=== PATIENT | female | born 1985 | race Hispanic/Latino ===

== ENCOUNTER 2023-11-04 02:00 | Inpatient (IN) ==
[2023-11-04] MEDS: ACETAMINOPHEN 325 MG TABLET PO ONE (02:31)
[2023-11-04 03:34] LABS: ALT/SGPT 67 U/L (<40); AST/SGOT 30 U/L (<32); Albumin 2.7 gm/dL (3.2-5.2); Albumin/Globulin Ratio 0.8 (1.0-2.3); Alkaline Phosphatase 334 U/L (39-117); Bilirubin,Total 0.4 mg/dL (0.1-1.0); Blood Urea Nitrogen 5 mg/dL (6-20); Calcium 8.5 mg/dL (8.6-10.4); Carbon Dioxide 19 mmol/L (22-30); Chloride 98 mmol/L (96-108); Globulin 3.4 gm/dL (2.2-3.7); Glomerular Filtration Rate 114; Glucose 103 mg/dL (70-105)
[2023-11-04] MEDS: 0.9 % SODIUM CHLORIDE 1,000 ML IV ONE ×2 (04:35→06:07)
[2023-11-04] MEDS: IPRATROPIUM/ALBUTEROL 3 ML AMPUL.NEB NEB ONE ×2 (05:24→06:13)
[2023-11-04] MEDS: DEXAMETHASONE 4 MG/ML VIAL NEB ONE (05:33)
[2023-11-04] MEDS: DEXAMETHASONE 10 MG/ML VIAL IM ONE (05:33)
[2023-11-04 05:46] LABS: Basophils # (Auto) 0.02 K/mcL (0.00-0.30); Basophils % (Auto) 0.1 % (0.0-2.0); Eosinophils % (Auto) 1.3 % (0.0-7.0); Hematocrit 34.5 % (34.1-44.9); Hemoglobin 10.9 g/dL (11.2-15.7); Lymphocytes # (Auto) 0.95 K/mcL (1.50-4.80); Lymphocytes % (Auto) 6.1 % (15.5-49.0); Mean Cell Volume 79.1 fL (80.0-100.0); Mean Corpuscular HGB Conc 31.6 g/dL (31.0-36.0); Monocytes # (Auto) 0.48 K/mcL (0.10-0.90); Monocytes % (Auto) 3.1 % (1.0-12.0); Neutrophils % (Auto) 88.7 % (38.0-78.0); Platelet Count 530 K/mcL (140-440); RBC 4.36 M/mcL (3.59-5.38); Red Cell Distribution Width 18.2 % (11.5-14.5); WBC 15.5 K/mcL (4.5-11.0)
[2023-11-04] MEDS: cefTRIAXone 1 GM VIAL IV ONE (08:33)
[2023-11-04] MEDS ORDERED: POTASSIUM CHLORIDE 40 MEQ in DEXTROSE 5% IN WATER 500 ML IV PRN (09:25)
[2023-11-04] MEDS ORDERED: POTASSIUM CHLORIDE 20 MEQ TABLET PO PRN (09:25)
[2023-11-04] MEDS ORDERED: SENNOSIDES 1 TABLET PO PRN (09:25)
[2023-11-04] MEDS ORDERED: POLYETHYLENE GLYCOL 3350 17 GM PACKET PO PRN (09:25)
[2023-11-04] MEDS ORDERED: VANCOMYCIN PER PHARMACY IV SCH (09:30)
[2023-11-04 10:11] LABS: Anisocytosis 2+ (None Seen); Band Neutrophils % 5 % (0-10); Eosinophils % (Manual) 3 % (0-7); Lymphocytes % 3 % (15-49); Microcytosis FEW (None Seen); Monocytes % (Manual) 3 % (1-12); Platelet Estimate INCREASED (Normal); RBC Morphology ABNORMAL (Normal); Reactive Lymphocytes 1 % (0-2); Segmented Neutrophils % 85 % (38-78)
[2023-11-04] MEDS: PIPERACILLIN SODIUM/TAZOBACTAM 3.375 GM in DEXTROSE 5% IN WATER 50 ML IV ONE (10:13)
[2023-11-04] MEDS: ENOXAPARIN 40 MG/0.4 ML SYRINGE SQ SCH (10:14)
[2023-11-04] MEDS: VANCOMYCIN 1,500 MG in 0.9 % SODIUM CHLORIDE 500 ML IV SCH (10:45)
[2023-11-04] MEDS: CEFEPIME 2 GM VIAL IV SCH (11:11)
[2023-11-04] MEDS: ACETAMINOPHEN 325 MG TABLET PO PRN (11:12)
[2023-11-04] MEDS: POTASSIUM CHLORIDE 20 MEQ TABLET PO PRN (11:12)
[2023-11-04] MEDS: MAGNESIUM SULFATE 2 GM/50 ML BAG IV PRN (11:12)
[2023-11-04 11:43] LABS: Appearance,Urine Clear (Clear); Bacteria,Urine 0 /hpf (0); Bilirubin,Urine Negative (Negative); Color,Urine Yellow; Culture Indicated,Urine No; Glucose,Urine (UA) Negative (Negative); Ketones,Urine Negative (Negative); Leukocyte Esterase,Urine Large /uL (Negative); Nitrate,Urine Negative (Negative); Protein,Urine Negative (Negative); Specific Gravity,Urine 1.015 (1.000-1.035); Urine Blood Large ery/mcL (Negative); Urine RBC 9 /hpf (0-3); Urine Squamous Epithelial Cell 20 /hpf (0-4); Urine WBC 10 /hpf (0-4); Urobilinogen,Urine 0.2 mg/dL
[2023-11-04] MEDS: 0.9 % SODIUM CHLORIDE 10 ML SYRINGE IV SCH (12:15)
[2023-11-04] MEDS ORDERED: PIPERACILLIN SODIUM/TAZOBACTAM 3.375 GM in DEXTROSE 5% IN WATER 100 ML IV SCH (14:00)
[2023-11-04] MEDS: DOCUSATE SODIUM 100 MG CAPSULE PO SCH (21:42)
[2023-11-04] MEDS: KETOROLAC 30 MG/ML VIAL IV PRN (23:59)
[2023-11-05] MEDS: KETOROLAC 15 MG/ML VIAL ONE (00:59)
[2023-11-05] MEDS: IPRATROPIUM/ALBUTEROL 3 ML AMPUL.NEB NEB PRN (01:56)
[2023-11-05 06:57] LABS: ALT/SGPT 48 U/L (<40); AST/SGOT 20 U/L (<32); Albumin 2.7 gm/dL (3.2-5.2); Albumin/Globulin Ratio 0.8 (1.0-2.3); Alkaline Phosphatase 294 U/L (39-117); Bilirubin,Direct < 0.2 mg/dL (0-0.3); Bilirubin,Total 0.4 mg/dL (0.1-1.0); Blood Urea Nitrogen 7 mg/dL (6-20); Calcium 8.7 mg/dL (8.6-10.4); Carbon Dioxide 21 mmol/L (22-30); Chloride 107 mmol/L (96-108); Globulin 3.3 gm/dL (2.2-3.7); Glomerular Filtration Rate 121; Glucose 104 mg/dL (70-105); Lactate Dehydrogenase 177 U/L (135-225); Phosphorous 4.3 mg/dL (2.5-4.5); Triglycerides 109 mg/dL (<150); Uric Acid 2.1 mg/dL (2.5-8.0)
[2023-11-05 07:07] LABS: Basophils # (Auto) 0.02 K/mcL (0.00-0.30); Basophils % (Auto) 0.1 % (0.0-2.0); Eosinophils # (Auto) 0.42 K/mcL (0.00-0.70); Eosinophils % (Auto) 2.3 % (0.0-7.0); Hematocrit 30.4 % (34.1-44.9); Hemoglobin 9.8 g/dL (11.2-15.7); Lymphocytes # (Auto) 0.88 K/mcL (1.50-4.80); Lymphocytes % (Auto) 4.9 % (15.5-49.0); Mean Cell Volume 78.4 fL (80.0-100.0); Mean Corpuscular HGB Conc 32.2 g/dL (31.0-36.0); Mean Platelet Volume 9.2 fL (8.8-12.5); Monocytes # (Auto) 0.32 K/mcL (0.10-0.90); Monocytes % (Auto) 1.8 % (1.0-12.0); Neutrophils % (Auto) 89.6 % (38.0-78.0); Platelet Count 507 K/mcL (140-440); RBC 3.88 M/mcL (3.59-5.38)
[2023-11-05] MEDS: POTASSIUM CHLORIDE 20 MEQ TABLET PO SCH (09:53)
[2023-11-06 06:18] LABS: Basophils # (Auto) 0.02 K/mcL (0.00-0.30); Basophils % (Auto) 0.1 % (0.0-2.0); Eosinophils % (Auto) 4.7 % (0.0-7.0); Hematocrit 29.6 % (34.1-44.9); Hemoglobin 9.4 g/dL (11.2-15.7); Lymphocytes # (Auto) 0.88 K/mcL (1.50-4.80); Lymphocytes % (Auto) 5.2 % (15.5-49.0); Mean Cell Volume 79.4 fL (80.0-100.0); Mean Corpuscular HGB Conc 31.8 g/dL (31.0-36.0); Mean Platelet Volume 9.4 fL (8.8-12.5); Monocytes # (Auto) 0.29 K/mcL (0.10-0.90); Monocytes % (Auto) 1.7 % (1.0-12.0); Neutrophils % (Auto) 86.3 % (38.0-78.0); Platelet Count 492 K/mcL (140-440); RBC 3.73 M/mcL (3.59-5.38); Red Cell Distribution Width 18.3 % (11.5-14.5); WBC 16.9 K/mcL (4.5-11.0)
[2023-11-06 06:37] LABS: ALT/SGPT 34 U/L (<40); AST/SGOT 18 U/L (<32); Albumin 2.5 gm/dL (3.2-5.2); Albumin/Globulin Ratio 0.8 (1.0-2.3); Alkaline Phosphatase 266 U/L (39-117); Bilirubin,Direct < 0.2 mg/dL (0-0.3); Bilirubin,Total 0.3 mg/dL (0.1-1.0); Blood Urea Nitrogen 9 mg/dL (6-20); Calcium 8.3 mg/dL (8.6-10.4); Carbon Dioxide 20 mmol/L (22-30); Chloride 106 mmol/L (96-108); Globulin 3.3 gm/dL (2.2-3.7); Glomerular Filtration Rate 114; Glucose 97 mg/dL (70-105); Lactate Dehydrogenase 177 U/L (135-225); Phosphorous 3.5 mg/dL (2.5-4.5); Triglycerides 138 mg/dL (<150); Uric Acid 2.3 mg/dL (2.5-8.0)
[2023-11-06] MEDS: HYDROcodone/APAP 5/325MG TABLET PO PRN (10:32)
[2023-11-06] MEDS: POTASSIUM CHLORIDE 20 MEQ TABLET PO SCH (10:33)
[2023-11-06 11:09] LABS: Ferritin 163.3 ng/mL (13.0-150.0)
[2023-11-06] MEDS: KETOROLAC 30 MG/ML VIAL IV PRN (12:10)
[2023-11-07 07:08] LABS: Basophils # (Auto) 0.02 K/mcL (0.00-0.30); Basophils % (Auto) 0.1 % (0.0-2.0); Eosinophils # (Auto) 0.69 K/mcL (0.00-0.70); Eosinophils % (Auto) 3.5 % (0.0-7.0); Hematocrit 29.7 % (34.1-44.9); Hemoglobin 9.6 g/dL (11.2-15.7); Lymphocytes # (Auto) 1.12 K/mcL (1.50-4.80); Lymphocytes % (Auto) 5.7 % (15.5-49.0); Mean Corpuscular HGB Conc 32.3 g/dL (31.0-36.0); Mean Platelet Volume 9.1 fL (8.8-12.5); Monocytes # (Auto) 0.36 K/mcL (0.10-0.90); Monocytes % (Auto) 1.8 % (1.0-12.0); Neutrophils % (Auto) 85.4 % (38.0-78.0); Platelet Count 501 K/mcL (140-440); RBC 3.76 M/mcL (3.59-5.38); Red Cell Distribution Width 18.3 % (11.5-14.5); WBC 19.7 K/mcL (4.5-11.0)
[2023-11-07 07:29] LABS: ALT/SGPT 35 U/L (<40); AST/SGOT 21 U/L (<32); Albumin 2.6 gm/dL (3.2-5.2); Albumin/Globulin Ratio 0.8 (1.0-2.3); Alkaline Phosphatase 257 U/L (39-117); Bilirubin,Direct < 0.2 mg/dL (0-0.3); Bilirubin,Total 0.2 mg/dL (0.1-1.0); Blood Urea Nitrogen 8 mg/dL (6-20); Calcium 8.2 mg/dL (8.6-10.4); Carbon Dioxide 19 mmol/L (22-30); Chloride 103 mmol/L (96-108); Globulin 3.3 gm/dL (2.2-3.7); Glomerular Filtration Rate 121; Glucose 102 mg/dL (70-105); Lactate Dehydrogenase 205 U/L (135-225); Phosphorous 4.2 mg/dL (2.5-4.5); Thyroid Stimulating Hormone 2.72 uIU/mL (0.27-5.01); Triglycerides 141 mg/dL (<150); Uric Acid 2.1 mg/dL (2.5-8.0)
[2023-11-07] MEDS ORDERED: VANCOMYCIN PER PHARMACY IV SCH (08:06)
[2023-11-07] MEDS: LACTATED RINGERS 1,000 ML IV ONE (09:04)
[2023-11-07] MEDS: VANCOMYCIN 1,500 MG in 0.9 % SODIUM CHLORIDE 500 ML IV ONE (09:04)
[2023-11-07] MEDS: LEVOFLOXACIN 750 MG/150 ML BAG IV SCH (09:11)
[2023-11-07] MEDS: LACTATED RINGERS 1,000 ML IV SCH (15:27)
[2023-11-07] MEDS: VANCOMYCIN 1,250 MG in 0.9 % SODIUM CHLORIDE 500 ML IV SCH (20:20)
[2023-11-08] MEDS: ONDANSETRON 4 MG/2 ML VIAL IV PRN (03:48)
[2023-11-08 05:32] LABS: Basophils # (Auto) 0.02 K/mcL (0.00-0.30); Basophils % (Auto) 0.1 % (0.0-2.0); Eosinophils # (Auto) 0.54 K/mcL (0.00-0.70); Eosinophils % (Auto) 2.4 % (0.0-7.0); Hematocrit 29.3 % (34.1-44.9); Hemoglobin 9.3 g/dL (11.2-15.7); Lymphocytes # (Auto) 1.07 K/mcL (1.50-4.80); Lymphocytes % (Auto) 4.8 % (15.5-49.0); Mean Cell Volume 80.3 fL (80.0-100.0); Mean Corpuscular HGB Conc 31.7 g/dL (31.0-36.0); Mean Platelet Volume 9.5 fL (8.8-12.5); Monocytes # (Auto) 0.41 K/mcL (0.10-0.90); Monocytes % (Auto) 1.8 % (1.0-12.0); Neutrophils % (Auto) 87.4 % (38.0-78.0); Platelet Count 486 K/mcL (140-440); RBC 3.65 M/mcL (3.59-5.38); Red Cell Distribution Width 18.3 % (11.5-14.5); WBC 22.3 K/mcL (4.5-11.0)
[2023-11-08 06:24] LABS: ALT/SGPT 29 U/L (<40); AST/SGOT 25 U/L (<32); Albumin 2.5 gm/dL (3.2-5.2); Albumin/Globulin Ratio 0.8 (1.0-2.3); Alkaline Phosphatase 247 U/L (39-117); Bilirubin,Direct < 0.2 mg/dL (0-0.3); Bilirubin,Total 0.2 mg/dL (0.1-1.0); Blood Urea Nitrogen 7 mg/dL (6-20); Calcium 8.2 mg/dL (8.6-10.4); Carbon Dioxide 22 mmol/L (22-30); Chloride 104 mmol/L (96-108); Globulin 3.2 gm/dL (2.2-3.7); Glomerular Filtration Rate 131; Glucose 104 mg/dL (70-105); Lactate Dehydrogenase 140 U/L (135-225); Phosphorous 3.4 mg/dL (2.5-4.5); Triglycerides 146 mg/dL (<150); Uric Acid 1.6 mg/dL (2.5-8.0)
[2023-11-08] MEDS: FUROSEMIDE 40 MG/4 ML VIAL IV ONE ×2 (10:16→17:15)
[2023-11-08] MEDS ORDERED: FUROSEMIDE 40 MG/4 ML VIAL IV SCH (16:00)
[2023-11-08] MEDS ORDERED: IOPAMIDOL 100 ML BOTTLE IV ONE (16:02)
[2023-11-08] MEDS: metroNIDAZOLE 500 MG/100 ML BAG IV SCH (17:57)
[2023-11-08 21:18] LABS: Appearance,Urine Clear (Clear); Bacteria,Urine 0 /hpf (0); Bilirubin,Urine Negative (Negative); Color,Urine Yellow; Culture Indicated,Urine No; Glucose,Urine (UA) Negative (Negative); Ketones,Urine Negative (Negative); Leukocyte Esterase,Urine Trace /uL (Negative); Nitrate,Urine Negative (Negative); PH,Urine 6.5 (5.0-9.0); Protein,Urine Negative (Negative); Urine Blood Moderate ery/mcL (Negative); Urine RBC 6 /hpf (0-3); Urine Squamous Epithelial Cell 4 /hpf (0-4); Urine WBC 7 /hpf (0-4); Urobilinogen,Urine Normal
[2023-11-09 05:53] LABS: Basophils # (Auto) 0.03 K/mcL (0.00-0.30); Basophils % (Auto) 0.2 % (0.0-2.0); Eosinophils # (Auto) 0.73 K/mcL (0.00-0.70); Eosinophils % (Auto) 3.8 % (0.0-7.0); Hematocrit 30.5 % (34.1-44.9); Hemoglobin 9.3 g/dL (11.2-15.7); Lymphocytes # (Auto) 1.18 K/mcL (1.50-4.80); Lymphocytes % (Auto) 6.1 % (15.5-49.0); Mean Corpuscular HGB Conc 30.5 g/dL (31.0-36.0); Mean Platelet Volume 9.7 fL (8.8-12.5); Monocytes # (Auto) 0.48 K/mcL (0.10-0.90); Monocytes % (Auto) 2.5 % (1.0-12.0); Neutrophils % (Auto) 83.4 % (38.0-78.0); Platelet Count 482 K/mcL (140-440); RBC 3.72 M/mcL (3.59-5.38); Red Cell Distribution Width 18.3 % (11.5-14.5); WBC 19.2 K/mcL (4.5-11.0)
[2023-11-09 06:11] LABS: ALT/SGPT 29 U/L (<40); AST/SGOT 39 U/L (<32); Albumin 2.5 gm/dL (3.2-5.2); Albumin/Globulin Ratio 0.7 (1.0-2.3); Alkaline Phosphatase 240 U/L (39-117); Bilirubin,Direct < 0.2 mg/dL (0-0.3); Bilirubin,Total 0.3 mg/dL (0.1-1.0); Blood Urea Nitrogen 6 mg/dL (6-20); Calcium 8.2 mg/dL (8.6-10.4); Carbon Dioxide 24 mmol/L (22-30); Chloride 103 mmol/L (96-108); Globulin 3.6 gm/dL (2.2-3.7); Glomerular Filtration Rate 144; Glucose 97 mg/dL (70-105); Lactate Dehydrogenase 163 U/L (135-225); Phosphorous 3.6 mg/dL (2.5-4.5); Triglycerides 165 mg/dL (<150); Uric Acid 2.1 mg/dL (2.5-8.0)
[2023-11-09] MEDS: SODIUM CHLORIDE 3 % 15 ML VIAL.NEB INH ONE (11:10)
[2023-11-09] MEDS ORDERED: LIDOCAINE 1% 20 ML VIAL SQ ONE (12:51)
[2023-11-09] MEDS ORDERED: SODIUM CHLORIDE IRRIG SOLUTION 500 ML BOTTLE IRR ONE (12:51)
[2023-11-09] MEDS ORDERED: VANCOMYCIN 1,500 MG in 0.9 % SODIUM CHLORIDE 500 ML IV SCH (14:00)
[2023-11-09] MEDS: VANCOMYCIN 1,750 MG in 0.9 % SODIUM CHLORIDE 500 ML IV ONE (14:41)
[2023-11-09] MEDS ORDERED: GADOBENATE DIMEGLUMINE 20 ML/VIAL IV ONE (15:00)
[2023-11-09] MEDS: VANCOMYCIN 1,500 MG in 0.9 % SODIUM CHLORIDE 500 ML IV SCH (23:04)
[2023-11-10 05:47] LABS: Basophils # (Auto) 0.04 K/mcL (0.00-0.30); Basophils % (Auto) 0.3 % (0.0-2.0); Eosinophils # (Auto) 0.67 K/mcL (0.00-0.70); Eosinophils % (Auto) 4.2 % (0.0-7.0); Hematocrit 30.8 % (34.1-44.9); Hemoglobin 9.6 g/dL (11.2-15.7); Lymphocytes # (Auto) 1.14 K/mcL (1.50-4.80); Lymphocytes % (Auto) 7.2 % (15.5-49.0); Mean Cell Volume 81.7 fL (80.0-100.0); Mean Corpuscular HGB Conc 31.2 g/dL (31.0-36.0); Mean Platelet Volume 9.4 fL (8.8-12.5); Monocytes # (Auto) 0.56 K/mcL (0.10-0.90); Monocytes % (Auto) 3.5 % (1.0-12.0); Neutrophils % (Auto) 80.3 % (38.0-78.0); Platelet Count 478 K/mcL (140-440); RBC 3.77 M/mcL (3.59-5.38); Red Cell Distribution Width 18.1 % (11.5-14.5); WBC 15.9 K/mcL (4.5-11.0)
[2023-11-10] MEDS: SODIUM CHLORIDE 3 % 15 ML VIAL.NEB INH SCH (06:21)
[2023-11-10 06:29] LABS: ALT/SGPT 48 U/L (<40); AST/SGOT 54 U/L (<32); Albumin 2.8 gm/dL (3.2-5.2); Albumin/Globulin Ratio 0.8 (1.0-2.3); Alkaline Phosphatase 291 U/L (39-117); Bilirubin,Direct < 0.2 mg/dL (0-0.3); Bilirubin,Total 0.2 mg/dL (0.1-1.0); Blood Urea Nitrogen 5 mg/dL (6-20); Calcium 8.7 mg/dL (8.6-10.4); Carbon Dioxide 25 mmol/L (22-30); Chloride 103 mmol/L (96-108); Globulin 3.4 gm/dL (2.2-3.7); Glomerular Filtration Rate 131; Glucose 101 mg/dL (70-105); Lactate Dehydrogenase 162 U/L (135-225); Phosphorous 3.7 mg/dL (2.5-4.5); Triglycerides 162 mg/dL (<150); Uric Acid 2.1 mg/dL (2.5-8.0)
[2023-11-10] MEDS: VANCOMYCIN 1,250 MG in 0.9 % SODIUM CHLORIDE 500 ML IV SCH (21:44)
[2023-11-11 06:19] LABS: Basophils # (Auto) 0.03 K/mcL (0.00-0.30); Basophils % (Auto) 0.2 % (0.0-2.0); Eosinophils # (Auto) 0.68 K/mcL (0.00-0.70); Eosinophils % (Auto) 4.1 % (0.0-7.0); Hematocrit 31.7 % (34.1-44.9); Hemoglobin 9.7 g/dL (11.2-15.7); Lymphocytes % (Auto) 7.8 % (15.5-49.0); Mean Cell Volume 82.3 fL (80.0-100.0); Mean Corpuscular HGB Conc 30.6 g/dL (31.0-36.0); Mean Platelet Volume 9.2 fL (8.8-12.5); Monocytes # (Auto) 0.55 K/mcL (0.10-0.90); Monocytes % (Auto) 3.3 % (1.0-12.0); Neutrophils % (Auto) 80.1 % (38.0-78.0); Platelet Count 509 K/mcL (140-440); RBC 3.85 M/mcL (3.59-5.38); Red Cell Distribution Width 18.6 % (11.5-14.5); WBC 16.8 K/mcL (4.5-11.0)
[2023-11-11 06:35] LABS: ALT/SGPT 42 U/L (<40); AST/SGOT 37 U/L (<32); Albumin 2.8 gm/dL (3.2-5.2); Albumin/Globulin Ratio 0.8 (1.0-2.3); Alkaline Phosphatase 226 U/L (39-117); Bilirubin,Direct < 0.2 mg/dL (0-0.3); Bilirubin,Total 0.2 mg/dL (0.1-1.0); Blood Urea Nitrogen 5 mg/dL (6-20); Calcium 8.5 mg/dL (8.6-10.4); Carbon Dioxide 23 mmol/L (22-30); Chloride 103 mmol/L (96-108); Globulin 3.4 gm/dL (2.2-3.7); Glomerular Filtration Rate 131; Glucose 100 mg/dL (70-105); Lactate Dehydrogenase 158 U/L (135-225); Triglycerides 169 mg/dL (<150); Uric Acid 2.2 mg/dL (2.5-8.0)
[2023-11-12 06:46] LABS: Basophils # (Auto) 0.06 K/mcL (0.00-0.30); Basophils % (Auto) 0.3 % (0.0-2.0); Eosinophils # (Auto) 0.71 K/mcL (0.00-0.70); Eosinophils % (Auto) 3.8 % (0.0-7.0); Hematocrit 31.2 % (34.1-44.9); Hemoglobin 9.8 g/dL (11.2-15.7); Lymphocytes # (Auto) 1.33 K/mcL (1.50-4.80); Lymphocytes % (Auto) 7.2 % (15.5-49.0); Mean Corpuscular HGB Conc 31.4 g/dL (31.0-36.0); Mean Platelet Volume 9.1 fL (8.8-12.5); Monocytes # (Auto) 0.67 K/mcL (0.10-0.90); Monocytes % (Auto) 3.6 % (1.0-12.0); Neutrophils % (Auto) 81.6 % (38.0-78.0); Platelet Count 531 K/mcL (140-440); RBC 3.85 M/mcL (3.59-5.38); Red Cell Distribution Width 18.6 % (11.5-14.5); WBC 18.6 K/mcL (4.5-11.0)
[2023-11-12 07:02] LABS: ALT/SGPT 37 U/L (<40); AST/SGOT 29 U/L (<32); Albumin/Globulin Ratio 0.9 (1.0-2.3); Alkaline Phosphatase 223 U/L (39-117); Bilirubin,Direct < 0.2 mg/dL (0-0.3); Bilirubin,Total 0.2 mg/dL (0.1-1.0); Blood Urea Nitrogen 6 mg/dL (6-20); C-Reactive Protein 8.46 mg/dL (0.03-0.80); Calcium 8.8 mg/dL (8.6-10.4); Carbon Dioxide 24 mmol/L (22-30); Chloride 100 mmol/L (96-108); Globulin 3.4 gm/dL (2.2-3.7); Glomerular Filtration Rate 131; Glucose 104 mg/dL (70-105); Lactate Dehydrogenase 148 U/L (135-225); Phosphorous 3.9 mg/dL (2.5-4.5); Triglycerides 178 mg/dL (<150); Uric Acid 2.5 mg/dL (2.5-8.0)
[2023-11-12 17:08] LABS: Mitogen - NIL 3.85 IU/mL; NIL 0.02 IU/mL; Quant TB Gold + 4T Incubated Negative (Negative); TB1-NIL 0.03 IU/mL; TB2-NIL 0.05 IU/mL
[2023-11-13 06:53] LABS: ALT/SGPT 32 U/L (<40); AST/SGOT 33 U/L (<32); Albumin 3.2 gm/dL (3.2-5.2); Albumin/Globulin Ratio 0.9 (1.0-2.3); Alkaline Phosphatase 218 U/L (39-117); Bilirubin,Direct < 0.2 mg/dL (0-0.3); Bilirubin,Total < 0.2 mg/dL (0.1-1.0); Blood Urea Nitrogen 7 mg/dL (6-20); Carbon Dioxide 24 mmol/L (22-30); Chloride 104 mmol/L (96-108); Globulin 3.4 gm/dL (2.2-3.7); Glomerular Filtration Rate 131; Glucose 93 mg/dL (70-105); Lactate Dehydrogenase 200 U/L (135-225); Triglycerides 186 mg/dL (<150); Uric Acid 2.7 mg/dL (2.5-8.0)
[2023-11-13 08:41] LABS: Basophils # (Auto) 0.07 K/mcL (0.00-0.30); Basophils % (Auto) 0.4 % (0.0-2.0); Eosinophils # (Auto) 0.73 K/mcL (0.00-0.70); Eosinophils % (Auto) 4.5 % (0.0-7.0); Hematocrit 32.8 % (34.1-44.9); Hemoglobin 10.2 g/dL (11.2-15.7); Lymphocytes # (Auto) 1.44 K/mcL (1.50-4.80); Lymphocytes % (Auto) 8.9 % (15.5-49.0); Mean Corpuscular HGB Conc 31.1 g/dL (31.0-36.0); Mean Platelet Volume 9.2 fL (8.8-12.5); Monocytes # (Auto) 0.68 K/mcL (0.10-0.90); Monocytes % (Auto) 4.2 % (1.0-12.0); Platelet Count 537 K/mcL (140-440); Red Cell Distribution Width 19.2 % (11.5-14.5); WBC 16.2 K/mcL (4.5-11.0)
[2023-11-14 09:13] LABS: Basophils # (Auto) 0.06 K/mcL (0.00-0.30); Basophils % (Auto) 0.4 % (0.0-2.0); Eosinophils # (Auto) 0.73 K/mcL (0.00-0.70); Eosinophils % (Auto) 4.4 % (0.0-7.0); Hematocrit 33.7 % (34.1-44.9); Hemoglobin 10.4 g/dL (11.2-15.7); Lymphocytes # (Auto) 1.56 K/mcL (1.50-4.80); Lymphocytes % (Auto) 9.3 % (15.5-49.0); Mean Corpuscular HGB Conc 30.9 g/dL (31.0-36.0); Mean Platelet Volume 8.9 fL (8.8-12.5); Monocytes % (Auto) 4.8 % (1.0-12.0); Neutrophils % (Auto) 79.3 % (38.0-78.0); Platelet Count 522 K/mcL (140-440); RBC 4.06 M/mcL (3.59-5.38); WBC 16.7 K/mcL (4.5-11.0)
[2023-11-15 06:08] LABS: Hematocrit 33.8 % (34.1-44.9); Hemoglobin 10.6 g/dL (11.2-15.7); Mean Corpuscular HGB Conc 31.4 g/dL (31.0-36.0); Platelet Count 496 K/mcL (140-440); RBC 4.12 M/mcL (3.59-5.38); WBC 15.2 K/mcL (4.5-11.0)
[2023-11-15 06:36] LABS: Anisocytosis 2+ (None Seen); Band Neutrophils % 3 % (0-10); Eosinophils % (Manual) 5 % (0-7); Lymphocytes % 10 % (15-49); Microcytosis OCC (None Seen); Monocytes % (Manual) 7 % (1-12); Platelet Estimate INCREASED (Normal); Polychromasia FEW (None Seen); RBC Morphology ABNORMAL (Normal); Segmented Neutrophils % 75 % (38-78)
== END 2023-11-15 13:43 | disposition home or self-care (01) | DRG 871 ==
LOC: ED 02:00 → MEDSUR 08:40
PROVIDERS: ADMIT Internal Medicine; ATTEND Internal Medicine